=== PATIENT | female | born 1945 | race Caucasian/White ===

== ENCOUNTER 2018-01-09 03:59 | Inpatient (IN) | payer OTHER, MEDICARE ==
[~2018-01-09] VITALS: Ht 162.6 cm; Wt 98.4 kg
[~2018-01-09 03:59] MED LIST: ADVIL200 MG PO; ALKA SELTZER PL PO; CELEBREX100 M1 PO; DOXYCYCLINE HY100 M2 PO; FISH OIL CONC1000 MG PO; IBUPROFEN800 MG PO; LEVAQUIN500 MG PO; MULTIVITAMINS1 EAC9 PO; PANTOPRAZOLE SO40 M1 PO; ROBITUSSIN W/CO10 ML PO; SUDAFED PE PRES PO; VITAMIN D31000 IU PO
[2018-01-09] MEDS ORDERED: COLACE100 M1 PO ×2 (08:33→14:23)
[2018-01-09] MEDS ORDERED: BONINE25 MG PO (08:34)
[2018-01-09] MEDS ORDERED: SALONPAS GEL-P1 EACH TOP (08:35)
--- NOTE | 2018-01-09 09:59 | Operative Report ---
Operative/Inv Procedure Report Surgery Date: 01/09/18 Name of Procedure: Left total knee arthroplasty Pre-Operative Diagnosis: Left knee primary osteoarthritis Post-Operative Diagnosis: Same with final pathology pending Estimated Blood Loss: less than 50ml Surgeon/Kids Club Attendant: Braeden ANGEL,Donovan Carcamo Anesthesia: laryngeal mask airway Implants: Eolia triathlon total knee system-size 4 femur, size 4 tibia, 9 mm cruciate retaining polyethylene, 29 patella Drains: None Specimens: Femoral, tibial, patellar bone, remnants of the medial lateral meniscal tissues Microbiology: Urine Tourniquet: 47 minutes Complications: None Condition: Stable Operative Indication: Patient is a 72-year-old woman with a long history of gradually worsening left knee symptoms. She underwent right total knee arthroplasty elsewhere after failure of conservative measures. She developed similar symptoms in her left side and despite activity modification and medications, she had ongoing symptoms that worsened and increased with activity level. Her activities of daily living were compromised and she wished to proceed with total knee arthroplasty. Risks, benefits and expectations were discussed which included but were not limited to persistent knee pain, need for subsequent surgery, infection, DVT, injury to blood vessel or nerve and anesthesia risks. Operative/Procedure Note Note: Patient was brought to the operating room and transferred to the operating table. Once under appropriate anesthesia the left lower extremity was prepped and draped in standard fashion. Preoperative IV antibiotics were given prophylactically. The left lower extremity was elevated exsanguinated and tourniquet was inflated. The standard incision was made over the anterior aspect of the knee. Medial retinacular approach was used to enter the knee joint. Osteophytes were excised. Tricompartment osteoarthritis was confirmed. Remnants of the medial lateral meniscal tissues were excised. The knee was flexed and the patella was subluxed. Remnants of the ACL were excised. Retractors were placed medial laterally. I then proceeded using intramedullary drill for the intramedullary guide for the distal femoral cut. The cutting block was pinned in place for 6 valgus cut. The cut was made. The femur was then sized to a size 4. The size 4 cutting block was pinned in place. 4 cuts were made. Soft tissues were protected throughout the surgery. I then used the external tibial alignment guide and pinned the cutting block in a neutral position from medial to lateral and reproducing patient's posterior slope based on preoperative templating and intraoperative measurements. The cut was made. PCL was recessed to balance this structure. The tibia was then sized to a size 4. I trialed a size 4 tibia size 4 femur with a 9 mm polyethylene. The knee was taken out to full extension. Good stability full extension mid flexion and full flexion to gravity. I then turned my attention to the patella. The patella was measured and the appropriate thickness was removed and then replaced with a size 29 patella. The 3 lug holes were drilled in the patella. The rotation was marked and the 2 lugholes were drilled in the femur. All this rotation was then removed. I finished preparation of the tibia with the appropriate tibial punch. Again all instrument tissue was removed and copious irrigation followed. Cement was being mixed on the back table. Once it was ready was applied to the dry clean bony surfaces of the tibia. The size 4 tibia was impacted in place and excess cement was removed with curette. Cement was applied to dry clean bony surfaces of the distal femur. The femur was impacted in place and excess cement was removed with curette. Polyethylene was inserted and the knee was taken out to full extension. Cement was applied to dry clean bony surfaces of the patella. The size 29 patella was impacted in place and excess cement was removed with a knife. Once the cement hardened into the knee through range of motion. I was satisfied with a 9 mm cruciate retaining polyethylene. Full extension good mid flexion stability and full flexion to gravity. Copious irrigation followed after the tibial polyethylene component was removed. The tibial tray was checked to make sure there was no fragments of bone, cement or any soft tissue remnants within the tibial tray. The definitive size 9 mm cruciate retaining polyethylene was impacted in place and the locking mechanism was confirmed. Copious irrigation followed tourniquet was deflated at 47 minutes. Hemostasis was obtained. Closure started after irrigation. Irrigation followed every level of closure. The retinaculum and minimal extension to the quadricep tendon were closed with interrupted #1 Vicryl sutures. Subcu tissues closed in 2 layers with 2-0 Vicryl and skin was closed with a running 3-0 Vicryl suture with the knee in flexion. Appropriate dressings were applied and patient was awakened and taken to recovery room in good condition. No intraoperative complications. Blood loss was less than 50 cc Discharge Disposition: PACU
--- NOTE | 2018-01-09 14:22 | Admission Core Measures ---
Acute Coronary Syndrome (CM) ACS Core Measures Acute Coronary Syndrome Diagnosis No Congestive Heart Failure (NEW) CHF Core Measures Congestive Heart Failure Diagnosis No Cerebrovascular Accident CVA Core Measures CVA/TIA Diagnosis No Venous Thromboembolism VTE Core Ida (View Protocol) VTE Risk Factors Surgery No Mechanical VTE Prophylaxis d/t N/A MechProphylax Ordered No VTE Pharm Prophylaxis d/t NA PharmProphylax ordered Problem List As ranked by this Provider includes Assessment & Plan 1. Unilateral primary osteoarthritis, left knee HOME MEDS Home Med List Capsaicin/Menthol (Salonpas Gel-Patch Hot) 0.025 %-1.25 % ADH..PATCH 1 PATCH TOP DAILY PRN pain (Reported) Celecoxib (Celebrex) 100 MG CAPSULE 1 CAP PO BID PAIN (Reported) Docusate Sodium (Colace) 100 MG CAPSULE 1 CAP PO DAILY PRN gi (Reported) Meclizine HCl (Bonine) 25 MG TAB.CHEW 1 TAB PO DAILY PRN dizziness (Reported) Multiple Vitamin (Multivitamins) 1 EACH TABLET 1 TAB PO DAILY SUPPLEMENT ( Reported) Pantoprazole Sodium 40 MG TABLET.DR 1 TAB PO PRN GERD (Reported)
[2018-01-09] MEDS ORDERED: VICODIN 5-3001 EACH PO (14:25)
--- NOTE | 2018-01-09 14:30 | Surgical Discharge Summary ---
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 Egyptian Review of Systems: As per [facility] Hospital Course Course Attending Physician: Braeden ANGEL,Carlos Alberto Primary Care Physician: Katiana Levi Hospital Course: Patient tolerated procedure well. Postoperatively she was tolerating regular diet, voiding spontaneously, pain was well managed, and relating with physical therapy using rolling walker. Her dressing was changed on postop day #2 there are no signs of infection. Patient was cleared for discharge by physical therapy. Patient was given instructions to follow-up with Dr. Deras in 2 weeks and to call sooner with any questions or concerns Allergies: Coded Allergies: Penicillins (Severe, RASH, SWELLING 01/06/18) chlorhexidine (From HIBICLENS) (Intermediate, bad rash, "pins & needles" ) oxycodone (From PERCOCET) (itch 12/30/17) Significant Procedures: Left total knee arthroplasty Disposition Summary Disposition Principal Diagnosis: Left knee osteoarthritis Additional Diagnosis: Status post left total knee arthroplasty Discharge Instructions General Discharge Information Code Status: Full Code Patient's Diet: Regular Patient's Activity: Weightbearing as tolerated with rolling walker Follow-Up Instructions/Appts: Follow-up with Dr. Deras in 2 weeks. Call sooner with any questions or concerns Medications at Discharge Discharge Medications: Start taking the following new medications: Docusate Sodium (Colace) 100 MG CAPSULE 1 Capsule ORAL TWICE DAILY Qty = 14 No Refills Instructions: STOP TAKING IF YOU DEVELOP LOOSE STOOL/DIARRHEA Hydrocodone/Acetaminophen (Vicodin 5-300 MG Tablet) 5 MG-300 MG TABLET 1-2 Tablet ORAL EVERY 4-6 HOURS as needed for post-op Qty = 36 No Refills Copies To: Katiana Levi
--- NOTE | 2018-01-09 14:34 | Patient Discharge Instructions ---
Discharge Instructions General Discharge Information You were seen/treated for: Left knee pain/left knee osteoarthritis You had these procedures: Left total knee arthroplasty Watch for these problems: Fever over 100.4 Redness and swelling around incision Drainage from incision Unable to bear weight on left lower extremity Chest pain or shortness of breath No bath, but you may shower: Yes Other wound care: Daily dry dressing change. Keep incision clean and dry. Special Instructions: You will need your blood drawn regularly to check your INR to titrate your Coumadin dose. This medication is to vital to prevent blood clots from forming which could be life threatening. Please contact Dr. Deras' office to help set this up Diet Continue normal diet: Yes Activity Activity Self Limited: Yes Activity Limited to: Weight bear as tolerated (with rolling walker) Acute Coronary Syndrome Inclusion Criteria At DC or during hospital stay patient has or had the following: ACS DIAGNOSIS No Discharge Core Measures Meds if any: Prescribed or Continued at Discharge Meds if any: NOT Prescribed or Continued at Discharge Congestive Heart Failure Inclusion Criteria At DC or during hospital stay patient has or had the following: CHF DIAGNOSIS No Discharge Core Measures Meds if any: Prescribed or Continued at Discharge Meds if any: NOT Prescribed or Continued at Discharge Cerebrovascular accident Inclusion Criteria At DC or during hospital stay patient has or had the following: CVA/TIA Diagnosis No Discharge Core Measures Meds if any: Prescribed or Continued at Discharge Meds if any: NOT Prescribed or Continued at Discharge Venous thromboembolism Inclusion Criteria VTE Diagnosis No VTE Type NONE VTE Confirmed by (Test) NONE Discharge Core Measures - Per Current guidelines, there needs to be overlap - treatment for the first 5 days of Warfarin therapy. - If discharged on Warfarin prior to 5 days of - overlap therapy, the patient will need to be - assessed for post discharge needs including - *Post discharge parental anticoagulation - *Warfarin and/or parental anticoagulation education - *Follow up date to check INR post discharge At least 5 days overlap therapy as Inpatient No Meds if any: Prescribed or Continued at Discharge Note: Overlap Therapy is Warfarin and Anticoagulant Meds if any: NOT Prescribed or Continued at Discharge
--- NOTE | 2018-01-09 15:50 | PN- Orthopedic ---
Subjective Subjective: Postop check Patient sleeping in bed. Denies pain. Denies paresthesias has not been out of bed to ambulate yet. Has Evans in place. No nausea. She denies chest pain, shortness of breath, fever. Tolerated clears. Patient only complaint is that she is cold Objective Vital Signs and I&Os STABLE IN PACU Physical Exam: General- NAD Resperations- clear bialaterlly Cardiac-regular rate and rhythm Abdomen-soft nontender with positive bowel sounds Extremities-dressing is clean and dry, thigh is soft with no erythema. Calves are soft bilaterally and non-tenderness. Distal sensory and motor function is intact. 2+ posterior tib pulse bilaterally Current Medications: Current Medications Sig/Fabienne Start time Last Medication Dose Route Stop Time Status Admin Acetaminophen 0 .STK-MED ONE 01/09 1303 DC IV Acetaminophen 0 .STK-MED ONE 01/09 0856 DC PO Acetaminophen 650 MG ONCE 01/09 0000 DC PO 01/09 2359 Celecoxib 100 MG BID 01/09 2100 AC PO Celecoxib 400 MG ONCE 01/09 0000 DC PO 01/09 2359 Dexamethasone 0 .STK-MED ONE 01/09 0855 DC .ROUTE Dexamethasone 10 MG ONCE 01/09 0000 DC IV 01/09 2359 Dextrose/Lactated 1,000 ML Q13H 01/09 1545 AC 01/09 Ringer's IV 01/10 0444 1541 Docusate Sodium 100 MG BID 01/09 1030 UNVr PO Fentanyl Citrate 0 .STK-MED ONE 01/09 1104 DC .ROUTE Fentanyl Citrate 0 .STK-MED ONE 01/09 0728 DC .ROUTE Gabapentin 0 .STK-MED ONE 01/09 0856 DC PO Gabapentin 300 MG ONCE 01/09 0000 DC PO 01/09 2359 Hydrocodone Bitart/ 1 TAB Q6P PRN 01/09 1545 UNVr Acetaminophen PO Hydrocodone Bitart/ 2 TAB Q6P PRN 01/09 1545 UNVr Acetaminophen PO Hydromorphone HCl 0 .STK-MED ONE 01/09 1339 DC .ROUTE Hydromorphone HCl 0 .STK-MED ONE 01/09 1247 DC .ROUTE Hydromorphone HCl 0 .STK-MED ONE 01/09 1103 DC .ROUTE Midazolam HCl 0 .STK-MED ONE 01/09 1304 DC .ROUTE Midazolam HCl 0 .STK-MED ONE 01/09 0728 DC .ROUTE Morphine Sulfate 2 MG Q3P PRN 01/09 1545 UNVr IV Morphine Sulfate 0 .STK-MED ONE 01/09 1010 DC .ROUTE Omeprazole 40 MG DAILY AC 01/10 0700 UNVr PO Ondansetron HCl 4 MG Q6P PRN 01/09 1545 UNVr IV Oxycodone HCl 0 .STK-MED ONE 01/09 0855 DC PO Oxycodone HCl 10 MG ONCE 01/09 0000 DC PO 01/09 2359 Polyethylene Glycol 17 GM DAILY 01/09 1030 UNVr PO Scopolamine HBr 0 .STK-MED ONE 01/09 0855 DC TOP Scopolamine HBr 1 PAT ONCE 01/09 0000 DC TOP 01/09 2359 Senna/Docusate Sodium 2 TAB AT BEDTIME NEED.. 01/09 1545 UNVr PO Vancomycin HCl 1,500 MG ONCE ONE 01/09 2200 AC Sodium Chloride 250 ML IV 01/09 2329 Vancomycin HCl 1,500 MG ONCE 01/09 0000 DC Sodium Chloride 250 ML IV 01/09 2359 Warfarin Sodium 5 MG COUMADIN 1700 ONE 01/09 1700 UNVr PO 01/09 1701 Assessment/Plan Assessment/Plan 72-year-old female status post left total knee arthroplasty postop day 0. Stable Pain management PT- WBAT with rolling walker DVT PPX-Coumadin, will check INR in a.m. DC IVF in a.m. FU AM labs Regular diet Regular home medications Encourage IS DC planning Dressing change Post-op day2 Core Measures Venous Thromboembolism VTE Risk Factors Surgery No Mechanical VTE Prophylaxis d/t N/A MechProphylax Ordered No VTE Pharm Prophylaxis d/t NA PharmProphylax ordered
[2018-01-09 18:28] VITALS: BP 99/63
--- NOTE | 2018-01-09 18:49 | Cons- Medical ---
Solo Mahmood MD 01/09/18 2662: General Information and HPI Consulting Request Date of Consult: 01/09/18 Requested By: Braeden ANGEL,Carlos Alberto Reason for Consult: Double vision Slurred speech History of Present Illness: 72-year-old woman with a past medical history of depression, hepatitis C, Lyme disease, factor V Leiden deficiency, osteoarthritis and migraines admitted to the surgical service for an elective left total knee replacement. She was admitted today (01/09/18) where she underwent the procedure uneventfully. Postoperatively patient was transferred to the general medicine floor. During the day reports having double vision and was found to have mildly slurred speech. The slurred speech was progressively worsening throughout the day or which at 6:30 p.m. a medicine consult was placed. Stat CT head was ordered by the surgical service. Patient seen and examined at bedside with her children present in the room after returning from CT scan. Patient is seen eating dinnner and speaking with her children in no acute distress. She reports feeling weak and tired since waking up from the surgery. She reports that her children though she was slurring her words earlier which was confimed by her children and nursing staff. She had double vision in her left vision ramos before that is now improved. Presently she admits to only minor left knee pain with mild weakness and lethargy and otherwise feels well. She denies any headache, fever, chills, chest pain, palpitations, heartburn, shortness of breath, cough, nausea, vomiting, diarrhea. Allergies/Medications Allergies: Coded Allergies: Penicillins (Severe, RASH, SWELLING 01/06/18) chlorhexidine (From HIBICLENS) (Intermediate, bad rash, "pins & needles" ) oxycodone (From PERCOCET) (itch 12/30/17) Home Med List: Capsaicin/Menthol (Salonpas Gel-Patch Hot) 0.025 %-1.25 % ADH..PATCH 1 PATCH TOP DAILY PRN pain (Reported) Celecoxib (Celebrex) 100 MG CAPSULE 1 CAP PO BID PAIN (Reported) Docusate Sodium (Colace) 100 MG CAPSULE 1 CAP PO DAILY PRN gi (Reported) Docusate Sodium (Colace) 100 MG CAPSULE 1 CAP PO BID STOOL SOFTENER STOP TAKING IF YOU DEVELOP LOOSE STOOL/DIARRHEA Hydrocodone/Acetaminophen (Vicodin 5-300 MG Tablet) 5 MG-300 MG TABLET 1-2 TAB PO Q4-6 PRN post-op Meclizine HCl (Bonine) 25 MG TAB.CHEW 1 TAB PO DAILY PRN dizziness (Reported) Multiple Vitamin (Multivitamins) 1 EACH TABLET 1 TAB PO DAILY SUPPLEMENT ( Reported) Pantoprazole Sodium 40 MG TABLET. 1 TAB PO PRN GERD (Reported) Review of Systems Review of Systems Constitutional: Reports: see HPI. 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 Home Services at Home: None Smoking Status: Former Smoker Exam & Diagnostic Data Last 24 Hrs of Vital Signs/I&O Vital Signs Date Time Temp Pulse Resp B/P B/P Pulse O2 O2 Flow FiO2 Mean Ox Delivery Rate 01/09 1828 97.9 62 14 99/63 95 Nasal 2.0L Cannula 01/09 1502 98 Nasal 2.0L Cannula Intake & Output 01/09 1600 01/09 0800 01/09 0000 Intake Total Output Total Balance Patient 98.43 kg Weight Weight Bed scale Measurement Method Physical Exam General Appearance: well developed/nourished, no apparent distress, alert, awake , comfortable Head: atraumatic, normal appearance Eyes: Bilateral: normal appearance, PERRL, EOMI. 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 Presently patient admits to weakness and fatigue with minor surgical pain. Vital signs remain within normal limits. Physical examination demonstrates a normal cardiopulmonary exam with a complete neurologic examination demonstrating no focal deficits. No labs available for review. CT head without IV contrast is unremarkable. Clinically patient appears to have had neurologic symptoms post operatively that were self limited possibly due to anesthesia or narcotic pain medicaitons - however TIA/CVA must be considered. Problem list -Blurred vision with slurred speech, likely due to anesthesia / narcotic versus TIA/CVA -Status post left total knee replacement, POD #0 -History of factor V Leiden deficiency -Osteoarthritis -History of migraines -Depression -History of Lyme disease -History of hepatitis C Recommendations -Post operative care per orthopedics -Anticoagulation per orthopedics -Neurochecks for 24 hours -Obtain neurology consult tomorrow if patient has recurrent neurologic symptoms -Avoid using narcotics for pain management - use intravenous tylenol for now -Obtain baseline labs (CBC, BMP, TSHR) to assess for metabolic derrangments -DVT PPx Consult Acknowledgment - Thank you for your consult request. Shayne Gary MD 01/09/182009: Assessment/Plan Consult Acknowledgment - Thank you for your consult request. Attending MD Review Statement Attending Statement Attending MD Statement: examined this patient, discuss w/resident/PA/FLUXER, agreed w/resident/PA/FLUXER, reviewed EMR data (avail), discussed with nursing, discussed with case mgmt, amended to note Attending Assessment/Plan: Patient seen and examined. Lying in bed. Does not appear to be in any acute distress. She is lethargic but oriented 3. She denies any symptoms other than double vision. She reports that this started earlier on today and has persisted since. Double vision is worse when she looks to the left but resolves when she looks to the right. It also improves when she closes either eye. There is no pain associated with eye motion. She initially denies having similar symptoms in the past however at the end of my evaluation when I stated I will be obtaining a neurology consult in the morning she asked me which would be Dr. Sepulveda. She stated that she was referred to in the past when she had similar double vision a few months ago. She reported symptoms at that time only lasted a few hours and then spontaneously resolved. She had made an appointment which later cancelled. She is speaking in full sentences and have speech does not appear slurred. Nursing staff present at the bedside reports that this is an improvement in her mental status and speech compared to several minutes ago. Blood pressure was reported to be in the 90s earlier on we will repeat blood pressure shows a systolic in the 120s. Blood glucose level is also acceptable. On examination she has equal strength in all extremities with no muscular deficit. She has no facial asymmetry. Pupils are round, equal and reactive to light. She however appears to be a mild horizontal nystagmus. She denies any pain with eye movement. No proptosis. Ocular motility is intact. Field of vision is intact. Stat head CT was obtained that showed no acute intracranial pathologies. Problems: 1. Lethargy and slurred speech; resolved. Likely secondary to anesthesia. 2. Recurrent binocular diplopia 3. History of factor V Leyden deficiency 4. History of hepatitis C Plan: -If systems persist overnight, recommend neurology consultation. -Provide patient with an eye patch to help with symptoms. -Check serum electrolytes. Check TSH level -Check CBC to rule out any significant anemia that may be contributing to her lethargy. -Avoid oversedation. Limit opioid use. Attempt pain control with non-opioid analgesics if possible.
[2018-01-09 18:55] VITALS: BP 120/72
--- NOTE | 2018-01-09 20:03 | CT SCAN REPORT ---
EXAMINATION: CT HEAD WITHOUT CONTRAST CLINICAL INFORMATION: New diplopia. COMPARISON: CT brain 07/30/2016. TECHNIQUE: Contiguous axial imaging was performed from the skull base to vertex without intravenous administration of contrast. DLP: 614 mGy-cm FINDINGS: There is no evidence of acute intracranial hemorrhage or territorial infarction. No abnormal mass effect or midline shift is seen. Taylor to white matter differentiation is well preserved. No extra-axial fluid collections are identified. The ventricles are normal in size. There is no abnormal attenuation within the brain parenchyma. The osseous structures and soft tissues are normal. There is mild mucoperiosteal thickening right sphenoid sinus. Rest of the paranasal sinuses and mastoid cells are well-aerated. IMPRESSION: No acute intracranial process seen. Minimal inflammatory changes in right sphenoid sinus.
[2018-01-09 21:02] VITALS: BP 117/60
--- NOTE | 2018-01-09 21:28 | Event Note ---
Event Note Event Note: Pt assessed by surgical RACHEAL Shell earlier this evening for change in speech/ confusion/diplopia. Stat CT head ordered at that time, medical consult also requested. At this time, pt has no neurological deficits appreciated- some decreased rom lle though pod0 sp left tkr, gross sensation and dorsi/ plantarflexion intact and equal bl, no garbled speech/word finding difficulties, no facial droop, no tongue deviation, bl ue with gross sensory intact, strength intact/equal bl. Per pt, has intermittent diplopia over last 2-3 months and was recently seen by an "eye dr" with a negative workup. CT head negative. DW medical team, appreciate input. Jim Deras- aware. Will continue to closely monitor.
[2018-01-09 23:43] VITALS: BP 106/67
[2018-01-10 02:00] VITALS: BP 106/64
[2018-01-10 06:43] VITALS: BP 110/60
[2018-01-10 08:25] LABS: ABSOLUTE BASOPHIL COUNT 0 /CUMM (0.0-0.2); ABSOLUTE EOSINOPHIL COUNT 0 /CUMM (0.0-0.7); ABSOLUTE GRANULOCYTE CT 10.1 /CUMM (1.4-6.5); ABSOLUTE LYMPH COUNT 1.1 /CUMM (1.2-3.4); ABSOLUTE MONOCYTE COUNT 1.2 /CUMM (0.10-0.60); BASOPHIL % 0 % (0.0-2.0); EOSINOPHIL % 0 % (0-5); HEMATOCRIT 32.2 % (37-47); MEAN CORPUSCULAR HGB 31.1 PG (27.0-31.0); MEAN CORPUSCULAR VOLUME 91.4 FL (81.0-99.0); MEAN PLATELET VOLUME 7.4 FL (7.4-10.4); PLATELET COUNT 211 /CUMM (130-400); RBC DISTRIBUTION WIDTH 12.4 % (11.5-14.5); RED BLOOD CELL CT 3.53 /CUMM (4.20-5.40); WHITE BLOOD CELL COUNT 12.4 /CUMM (4.8-10.8)
[2018-01-10 08:33] LABS: PT 12.9 SEC (9.4-12.5)
--- NOTE | 2018-01-10 09:12 | PN- Medicine Consult ---
Timoteo ANGEL,Solo 01/10/18 0811: Assessment/PlanMedical Consult Assessment/Plan Assessment: 72 year old woman with multiple medical problems admitted to the surgical service for an elective left total knee replacement found to have blurred vision and worsening slurred speech post operatively for which a medicine consult was placed. Patient appears well today without any complaints or neurologic deficits. Vitals signs remain stable overnight. Physical examination remains unchanged. Labs today demonstrated mild leukocytosis thats likely reactive and mild anemia with a serum chemistry low sodium. Patient appears to have euvolemic hyponatremia for which serum/urine osmolality + urine lytes should be added on to morning labs to evaluate possible causes such as SIADH - This may be further evaluated as an outpatient. Problem list -Blurred vision with slurred speech, likely due to anesthesia - now resolved -Status post left total knee replacement, POD #1 -Euvolemic Hyponatremia -History of factor V Leiden deficiency -Osteoarthritis -History of migraines -Depression -History of Lyme disease -History of hepatitis C Recommendations -Post operative care per orthopedics -Anticoagulation per orthopedics -Add on Serum and urine osmolality and urine lytes, include these values in your discharge paperwork with instruction to follow up with her PCP as an outpatient for further evaluation of these findings -Recheck serum chemistry tomorrow -Minimize use of narcotics for pain relief if possible -DVT PPx Plan: As above Subjective Subjective: Patient seen and examined. She is seen sitting upright in her chair at bedside resting comfortably. She appears to be in no acute distress. She reports feeling well but some admit to some residual pain in the surgical site. She denies any further episodes of blurred vision or slurred speech. Review of Systems Additionally she denies any fever, chills, chest pain, shortness of breath, abdominal pain, numbness, tingling, or weakness. Objective Last 24 Hrs of Vital Signs/I&O Vital Signs Date Time Temp Pulse Resp B/P B/P Pulse O2 O2 Flow FiO2 Mean Ox Delivery Rate 01/10 0643 98.2 65 20 110/60 94 Room Air 01/10 0200 98.0 67 18 106/64 98 Room Air 01/09 2343 98.1 66 18 106/67 93 Room Air 01/09 2102 97.7 75 20 117/60 93 Room Air 01/09 1855 62 20 120/72 96 Nasal 2.0L Cannula 01/09 1828 97.9 62 14 99/63 95 Nasal 2.0L Cannula 01/09 1502 98 Nasal 2.0L Cannula Intake & Output 01/10 1600 01/10 0800 01/10 0000 Intake Total 220 420 Output Total 250 200 Balance -30 220 Intake, IV 20 300 Intake, Oral 200 120 Output, Urine 250 200 Physical Exam Other Physical Findings: General Appearance: well developed/nourished, no apparent distress, alert, awake , comfortable Head: atraumatic, normal appearance Eyes: Bilateral: normal appearance, PERRL, EOMI. Neck: normal inspection, supple, full range of motion Respiratory: normal breath sounds, chest non-tender, no respiratory distress, quiet respiration, lungs clear Cardiovascular: regular rate/rhythm, normal peripheral pulses Peripheral Pulses: 2+ radial (R), 2+ radial (L) Gastrointestinal: normal bowel sounds, soft, non-tender Extremities: normal inspection, normal capillary refill, normal range of motion, no edema Neurologic/Psych: no motor/sensory deficits, awake, alert, oriented x 3, normal mood/affect, operations executive II-XII nml as tested Cranial Nerves: normal hearing, normal speech, PERRL Current Medications: Current Medications Sig/Fabienne Start time Last Medication Dose Route Stop Time Status Admin Acetaminophen 0 .STK-MED ONE 01/10 0111 DC IV Acetaminophen 0 .STK-MED ONE 01/09 203 DC IV Acetaminophen 1,000 MG Q6H 01/10 2000 AC 01/10 N/A 1 UNIT IV 01/10 1414 0909 Acetaminophen 0 .STK-MED ONE 01/09 1303 DC IV Acetaminophen 650 MG ONCE 01/09 0000 DC PO 01/09 235 Celecoxib 100 MG BID 01/09 2100 AC 01/10 PO 0911 Celecoxib 400 MG ONCE 01/09 0000 DC PO 01/09 2359 Dexamethasone 10 MG ONCE 01/09 0000 DC IV 01/09 2359 Dextrose/Lactated 1,000 ML Q13H 01/09 1545 DC 01/09 Ringer's IV 01/10 0444 1541 Docusate Sodium 100 MG BID 01/09 1030 AC 01/10 PO 0911 Fentanyl Citrate 0 .STK-MED ONE 01/09 1104 DC .ROUTE Gabapentin 300 MG ONCE 01/09 0000 DC PO 01/09 2359 Hydrocodone Bitart/ 1 TAB Q6P PRN 01/09 1545 DC Acetaminophen PO Hydrocodone Bitart/ 2 TAB Q6P PRN 01/09 1545 DC Acetaminophen PO Hydromorphone HCl 0 .STK-MED ONE 01/09 1339 DC .ROUTE Hydromorphone HCl 0 .STK-MED ONE 01/09 1247 DC .ROUTE Hydromorphone HCl 0 .STK-MED ONE 01/09 1103 DC .ROUTE Midazolam HCl 0 .STK-MED ONE 01/09 1304 DC .ROUTE Morphine Sulfate 2 MG Q3P PRN 01/09 1545 AC IV Morphine Sulfate 0 .STK-MED ONE 01/09 1010 DC .ROUTE Omeprazole 40 MG DAILY AC 01/10 0700 AC 01/10 PO 0521 Ondansetron HCl 4 MG Q6P PRN 01/09 1545 AC IV Oxycodone HCl 10 MG ONCE 01/09 0000 DC PO 01/09 2359 Polyethylene Glycol 17 GM DAILY 01/09 1030 AC 01/10 PO 0911 Scopolamine HBr 1 PAT ONCE 01/09 0000 DC TOP 01/09 2359 Senna/Docusate Sodium 2 TAB AT BEDTIME NEED.. 01/09 1545 AC PO Vancomycin HCl 1,500 MG ONCE ONE 01/09 2200 DC 01/09 Sodium Chloride 250 ML IV 01/09 2329 2101 Vancomycin HCl 1,500 MG ONCE 01/09 0000 DC Sodium Chloride 250 ML IV 01/09 2359 Warfarin Sodium 5 MG COUMADIN 1700 ONE 01/09 1700 DC 01/09 PO 01/09 1701 2049 Results Last 24 Hrs Lab/Javier Results: Laboratory Tests 01/10/18 0752: Anion Gap 8, Estimated GFR > 60, BUN/Creatinine Ratio 28.0 H, PT 12.9 H, INR 1.18, CBC w Diff NO MAN DIFF REQ, RBC 3.53 L, MCV 91.4, MCH 31.1 H, MCHC 34.0, RDW 12.4, MPV 7.4, Gran % 82.0 H, Lymphocytes % 8.7 L, Monocytes % 9.3, Eosinophils % 0, Basophils % 0, Absolute Granulocytes 10.1 H, Absolute Lymphocytes 1.1 L, Absolute Monocytes 1.2 H, Absolute Eosinophils 0, Absolute Basophils 0 Microbiology 01/09 1055 URINE ROUT: Urine Culture - RES Leeann Bowie MD 01/10/18 1133: Attending MD Review Statement Attending Sign Off Attending Cosign Statement: I have: examined this patient, reviewed al EMR data, personally reviewd images, discussd w/resident/PA/SILVICULTURE PROFESSOR, discussed mgmt plan w/chinedu, discussed mgmt plan w/pt, agreed w/resident/PA/SILVICULTURE PROFESSOR, amended to note. Other Findings: Patient seen and examined, currently she is back to her baseline. She denies further diplopia. She is not having any more slurring of her speech. Vital Signs Date Time Temp Pulse Resp B/P B/P Pulse O2 O2 Flow FiO2 Mean Ox Delivery Rate 01/10 0643 98.2 65 20 110/60 94 Room Air 01/10 0200 98.0 67 18 106/64 98 Room Air 01/09 2343 98.1 66 18 106/67 93 Room Air 01/09 2102 97.7 75 20 117/60 93 Room Air 01/09 1855 62 20 120/72 96 Nasal 2.0L Cannula 01/09 1828 97.9 62 14 99/63 95 Nasal 2.0L Cannula 01/09 1502 98 Nasal 2.0L Cannula on exam; aox3, nad. cv; s1, s2, rrr resp; clear abd; soft, nt, bs+ ext; no edema Laboratory Tests 01/10 0752 Chemistry Sodium (137 - 145 mmol/L) 130 L Potassium (3.5 - 5.1 mmol/L) 4.3 Chloride (98 - 107 mmol/L) 97 L Carbon Dioxide (22 - 30 mmol/L) 26 Anion Gap (5 - 16) 8 BUN (7 - 17 mg/dL) 14 Creatinine (0.5 - 1.0 mg/dL) 0.5 Estimated GFR (>60 ml/min) > 60 BUN/Creatinine Ratio (7 - 25 %) 28.0 H Coagulation PT (9.4 - 12.5 SEC) 12.9 H INR (0.90 - 1.19) 1.18 Hematology CBC w Diff NO MAN DIFF REQ WBC (4.8 - 10.8 /CUMM) 12.4 H RBC (4.20 - 5.40 /CUMM) 3.53 L Hgb (12.0 - 16.0 G/DL) 11.0 L Hct (37 - 47 %) 32.2 L MCV (81.0 - 99.0 FL) 91.4 MCH (27.0 - 31.0 PG) 31.1 H MCHC (33.0 - 37.0 G/DL) 34.0 RDW (11.5 - 14.5 %) 12.4 Plt Count (130 - 400 /CUMM) 211 MPV (7.4 - 10.4 FL) 7.4 Gran % (42.2 - 75.2 %) 82.0 H Lymphocytes % (20.5 - 51.1 %) 8.7 L Monocytes % (1.7 - 9.3 %) 9.3 Eosinophils % (0 - 5 %) 0 Basophils % (0.0 - 2.0 %) 0 Absolute Granulocytes (1.4 - 6.5 /CUMM) 10.1 H Absolute Lymphocytes (1.2 - 3.4 /CUMM) 1.1 L Absolute Monocytes (0.10 - 0.60 /CUMM) 1.2 H Absolute Eosinophils (0.0 - 0.7 /CUMM) 0 Absolute Basophils (0.0 - 0.2 /CUMM) 0 Assessment and recommendations: 72 y/o F with pmh sig for depression, hepatitis C, Lyme disease, factor V Leiden deficiency, osteoarthritis who is status post total left knee replacement postop day #1 today. Medicine was consulted secondary to patient found to have slurring of speech and double vision yesterday. CT head was ordered and it came out negative. This is likely secondary to the effect of anesthesia and medications. Patient now back to baseline. CT head was negative. Noted a slight drop in patient's sodium. Please watch fluid intake. Noted that patient has received dextrose lactated Ringer's fluids. Monitor sodium. Can order urine studies including urine lites and urine osmolality as well as serum osmolality to look for the cause of hyponatremia. We might have to put her on some fluid restriction pending these studies. Continue the rest of the management. Avoid extra doses of narcotics. DVT prophylaxis Coumadin per orthopedic. prophylaxis Coumadin per orthopedic.
--- NOTE | 2018-01-10 10:10 | PN- Orthopedic ---
See Addendum Subjective Subjective: Post operative events noted. No current complaints of neurologic deficits, double vision has resolved. No headache or blurred vision. No dizziness. No nausea or vomitting. Tolerated diet, no difficulty speaking or swallowing. Effects of femoral nerve block still noted, quadriceps on left side weak. Pain tolerable. Finds fuentes catheter to be irritating, requesting its removal. Objective Vital Signs and I&Os Vital Signs Date Time Temp Pulse Resp B/P B/P Pulse O2 O2 Flow FiO2 Mean Ox Delivery Rate 01/10 0643 98.2 65 20 110/60 94 Room Air 01/10 0200 98.0 67 18 106/64 98 Room Air 01/09 2343 98.1 66 18 106/67 93 Room Air 01/09 2102 97.7 75 20 117/60 93 Room Air 01/09 1855 62 20 120/72 96 Nasal 2.0L Cannula 01/09 1828 97.9 62 14 99/63 95 Nasal 2.0L Cannula 01/09 1502 98 Nasal 2.0L Cannula Intake & Output 01/10 1600 01/10 0801/10 0000 01/09 1600 01/09 0800 01/09 0000 Intake Total 220 420 Output Total 250 200 Balance -30 220 Intake, IV 20 300 Intake, Oral 200 120 Output, Urine 250 200 Patient 217 lb Weight Weight Bed scale Measurement Method Physical Exam: General: Alert and oriented x3, no acute distress HEENT: cranial nerve assessment intact, no neurological deficit appreciated Cardiac: RRR, s1s2 Pulm: C TA bilaterally Abd: Soft, non-tender, non -distended Extremties: Moves all extremities, distan sensation grossly intact. Motor limited in left side due to impaired quad function related to femoral nerve block, requires knee immoblizer when standing/ambulating. Bilateral calves soft and non-tender Surgical site: Left knee, dressing dry and intact. Assessment/Plan Assessment/Plan This is a 72 year old female, POD 1, s/p L TKA. Post op course complicated by diplopia, altered mental status for which stroke alert was called. CT findings negative, current neurological exam without deficit with the exception of impaired quadricep function post femoral nerve block. -Limit narcotic use, continue to assess neurologic function -OOB, KNEE IMMOBILIZER AT ALL TIMES -until otherwise indicaed by PT, WBAT -DC fuentes -DC iv fluids -Continue diet as tolerated -Coumadin for dvt ppx, titrate dose daily per INR, target INR 2.0-2.5 Will discuss plan of care with Dr. Deras Core Measures Venous Thromboembolism VTE Risk Factors Surgery No Mechanical VTE Prophylaxis d/t N/A MechProphylax Ordered No VTE Pharm Prophylaxis d/t NA PharmProphylax ordered
[2018-01-10 12:00] VITALS: BP 112/68
[2018-01-10 14:44] VITALS: BP 115/60
[2018-01-10 21:07] VITALS: BP 110/66
[2018-01-11 06:20] VITALS: BP 147/81
[2018-01-11 07:47] LABS: ABSOLUTE BASOPHIL COUNT 0 /CUMM (0.0-0.2); ABSOLUTE EOSINOPHIL COUNT 0.2 /CUMM (0.0-0.7); ABSOLUTE GRANULOCYTE CT 7.5 /CUMM (1.4-6.5); ABSOLUTE LYMPH COUNT 1.4 /CUMM (1.2-3.4); ABSOLUTE MONOCYTE COUNT 1.2 /CUMM (0.10-0.60); BASOPHIL % 0.3 % (0.0-2.0); EOSINOPHIL % 2.2 % (0-5); GRANULOCYTE % 71.9 % (42.2-75.2); HEMATOCRIT 31.6 % (37-47); MEAN CORPUSCULAR HGB 31.4 PG (27.0-31.0); MEAN CORPUSCULAR HGB CONC 34.2 G/DL (33.0-37.0); MEAN CORPUSCULAR VOLUME 91.8 FL (81.0-99.0); MEAN PLATELET VOLUME 7.8 FL (7.4-10.4); PLATELET COUNT 187 /CUMM (130-400); RBC DISTRIBUTION WIDTH 12.8 % (11.5-14.5); RED BLOOD CELL CT 3.44 /CUMM (4.20-5.40); WHITE BLOOD CELL COUNT 10.4 /CUMM (4.8-10.8)
[2018-01-11 08:17] LABS: PT 13.7 SEC (9.4-12.5)
--- NOTE | 2018-01-11 08:40 | PN- Medicine Consult ---
Jose A ANGEL,Tad 01/11/18 0840: Assessment/PlanMedical Consult Assessment/Plan Assessment: 72 year old woman with multiple medical problems admitted to the surgical service for an elective left total knee replacement found to have blurred vision and worsening slurred speech post operatively for which a medicine consult was placed. Patient appears well today without any complaints or neurologic deficits. Vitals signs remain stable overnight. Physical examination remains unchanged. leukocytosis that was likely reactive has resolved. There is mild anemia but stable. serum chemistry is remarkable for low sodium. Patient appears to have euvolemic hyponatremia for which serum/urine osmolality + urine lytes should be added on to morning labs to evaluate possible causes such as SIADH - pain is always a possible cause of SIADH. Her sodium levels indicate mild hyponatremia and since she is asymptomatic, her hyponatremia can be f/u an outpatient basis. Problem list -Blurred vision with slurred speech, likely due to anesthesia - now resolved -Status post left total knee replacement, POD #1 -Euvolemic Hyponatremia -History of factor V Leiden deficiency -Osteoarthritis -History of migraines -Depression -History of Lyme disease -History of hepatitis C Plan: Recommendations -Post operative care per orthopedics -Anticoagulation per orthopedics -please obtain urine lytes (only urine osmolarity has been obtained) -Minimize use of narcotics for pain relief if possible -DVT PPx Plan: As above Problem List: 1. Unilateral primary osteoarthritis, left knee Subjective Subjective: seen and examined while seated comfortably on recliner. She still reports musculoskeletal pain but offers no complaints of fever/chills/ sob/cp/palpitation/focal neurological deficits/abdominal pain or dysuria. Review of Systems Constitutional: Reports: see HPI. Objective Last 24 Hrs of Vital Signs/I&O Vital Signs Date Time Temp Pulse Resp B/P B/P Pulse O2 O2 Flow FiO2 Mean Ox Delivery Rate 01/11 1409 99.4 88 18 133/68 95 Room Air 01/11 0620 97.6 91 17 147/81 95 01/10 2107 98.4 86 16 110/66 93 Room Air Intake & Output 01/11 1600 01/11 0800 01/11 0000 Intake Total 720 240 240 Output Total 600 300 350 Balance 120 -60 -110 Intake, Oral 720 240 240 Output, Urine 600 300 350 Physical Exam General Appearance: well developed/nourished, no apparent distress, alert, awake , comfortable Head: atraumatic, normal appearance Cardiovascular: regular rate/rhythm Respiratory: normal breath sounds, chest non-tender, no respiratory distress, lungs clear Abdomen: normal bowel sounds, soft, non-tender Current Medications: Current Medications Sig/Fabienne Start time Last Medication Dose Route Stop Time Status Admin Acetaminophen 975 MG Q8P PRN 01/10 1800 AC 01/11 PO 1230 Celecoxib 100 MG BID 01/09 2100 AC 01/11 PO 0935 Docusate Sodium 100 MG BID 01/09 1030 AC 01/11 PO 0935 Morphine Sulfate 2 MG Q3P PRN 01/09 1545 AC IV Omeprazole 40 MG DAILY AC 01/10 0700 AC 01/11 PO 0517 Ondansetron HCl 4 MG Q6P PRN 01/09 1545 AC IV Oxycodone HCl 5 MG Q4P PRN 01/10 1800 AC 01/11 PO 1422 Patient Medication 1 ED ONE ONE 01/11 1115 DC 01/11 Teaching ED 01/11 1116 1231 Patient Medication [address] [facility] ONE 01/10 1930 OR 01/10 Teaching ED 01/10 1931 2134 Polyethylene Glycol 17 GM DAILY 01/09 1030 01/11 PO 0935 Senna/Docusate Sodium 2 TAB AT BEDTIME NEED.. 01/09 1545 AC PO Warfarin Sodium 7.5 MG COUMADIN 1700 ONE 01/11 1700 AC PO 01/11 1701 Warfarin Sodium 5 MG COUMADIN 1700 ONE 01/10 1700 OR 01/10 PO 01/10 1701 1751 Results Last 24 Hrs Lab/Javier Results: Laboratory Tests 01/11/18 0603: Anion Gap 5, Estimated GFR > 60, BUN/Creatinine Ratio 25.0, PT 13.7 H, INR 1.25 H, CBC w Diff NO MAN DIFF REQ, RBC 3.44 L, MCV 91.8, MCH 31.4 H, MCHC 34.2, RDW 12.8, MPV 7.8, Gran % 71.9, Lymphocytes % 13.7 L, Monocytes % 11.9 H, Eosinophils % 2.2, Basophils % 0.3, Absolute Granulocytes 7.5 H, Absolute Lymphocytes 1.4, Absolute Monocytes 1.2 H, Absolute Eosinophils 0.2, Absolute Basophils 0 Shiloh Thomas 01/11/18 1004: Attending MD Review Statement Attending Sign Off Attending Cosign Statement: I have: examined this patient, reviewed [employer] EMR data, personally reviewd images. Other Findings: 72 y/o F with pmh sig for depression, hepatitis C, Lyme disease, factor V Leiden deficiency, osteoarthritis who is status post total left knee replacement. Medicine was consulted secondary to patient found to have slurring of speech and double vision. This is likely secondary to the effect of anesthesia and medications. Patient now back to baseline. CT head was negative. Hyponatremia improving. Continue the rest of the management. DVT prophylaxis Coumadin INR 1.25 per orthopedic. Rest of care as per orthopedics. follow up with PCP after discharge. Monitor INR and adjust coumadin.
--- NOTE | 2018-01-11 08:44 | PN- Student ---
See Addendum Shira Coulter 01/11/18 0820: Subjective Subjective: Pt resting comfortably in bed s/p total left knee replacement POD 2. Denies pain at rest but 8/10 pain in the back of the knee with movement. Has been able to ambulate down the hallway with walker this morning w/ PT. Continues to flex ankle and elevate the knee. Pt reports paresthesias on left inner thigh likely 2 /2 to nerve block. Pt has tolerated regular diet well, passing flatus, but has not had BM yet. Dressings changed at bedside in the AM. Pt denies chest pain, SOB, fever, dysuria, diploplia, dizziness, or constipation. Objective Objective: 24 TOTALS 01/11 0000 01/10 0000 Intake Total 1460 420 Output Total 600 200 Balance 860 220 Intake, IV 20 300 Intake, Oral 1440 120 Output, Urine 600 200 Patient 217 lb Weight Weight Bed scale Measurement Method Laboratory Tests 01/11/18 0603: Sodium Pending, Potassium Pending, Chloride Pending, Carbon Dioxide Pending, Anion Gap Pending, BUN Pending, Creatinine Pending, BUN/Creatinine Ratio Pending , PT 13.7 H, INR 1.25 H, CBC w Diff NO MAN DIFF REQ, RBC 3.44 L, MCV 91.8, MCH 31.4 H, MCHC 34.2, RDW 12.8, MPV 7.8, Gran % 71.9, Lymphocytes % 13.7 L, Monocytes % 11.9 H, Eosinophils % 2.2, Basophils % 0.3, Absolute Granulocytes 7.5 H, Absolute Lymphocytes 1.4, Absolute Monocytes 1.2 H, Absolute Eosinophils 0.2, Absolute Basophils 0 01/10/18 0752: Anion Gap 8, Estimated GFR > 60, BUN/Creatinine Ratio 28.0 H, Serum Osmolality 273 L, PT 12.9 H, INR 1.18, CBC w Diff NO MAN DIFF REQ, RBC 3.53 L, MCV 91.4, MCH 31.1 H, MCHC 34.0, RDW 12.4, MPV 7.4, Gran % 82.0 H, Lymphocytes % 8.7 L, Monocytes % 9.3, Eosinophils % 0, Basophils % 0, Absolute Granulocytes 10.1 H, Absolute Lymphocytes 1.1 L, Absolute Monocytes 1.2 H, Absolute Eosinophils 0, Absolute Basophils 0 Physical exam: General- elderly, overweight female resting in bed, NAD, AOx4 Cardiac- RRR, s1s2 crisp, no m/r/g Resp: quiet breath sounds, increased work of breath, vesicular b/l, no w/r/r Abdomen- soft, NT, mildly distended, NABS Extremities- LLE motor 4/5 elicits pain on flex/extension, RLE motor 5/5, sensation grossly intact on right, decreased on left inner thigh, dressing is clean and dry w/o erythema or exudate. Calves are soft b/l w/o tenderness. 1+ posterior tib pulse b/l, dorsalis pedis not appreciated Assessment/Plan Assessment: 72 yo female w/ PMHx of Factor V Leiden, Lyme, migraines, hepC, OA and depression POD 2 s/p L TKA post-op course cx by diploplia and AMS resolved yesterday and euvolemic hyponatremia currently pending w/u Plan: F/u AM BMP and IM to plan for euvolemic hyponatremia mgmt Pain management w/ 975mg Tylenol and 5mg oxycodone q4 prn, transition to PO as tolerated OOB and WBAT w/ rolling walker Encourage IS Continue regular diet as tolerated Coumadin for dvt ppx, titrate dose daily per INR (target 2.0-2.5) D/c planning, home PT versus STR Will discuss plan w/ Surg PA and Dr. Deras
[2018-01-11 14:09] VITALS: BP 133/68
--- NOTE | 2018-01-11 15:59 | RADIOLOGY REPORT ---
EXAMINATION: XR KNEE, LEFT CLINICAL INFORMATION: Status post left total knee arthroplasty. COMPARISON: None TECHNIQUE: AP and crosstable lateral views of the left knee. FINDINGS: The left total knee arthroplasty appears well seated in near-anatomic alignment. There is a small joint effusion. There is some scattered air in the soft tissues. IMPRESSION: Intact-appearing left total knee arthroplasty. Small joint effusion. Expected postoperative changes.
[2018-01-11 21:06] VITALS: BP 140/68
--- NOTE | 2018-01-12 06:57 | PN- Student ---
Shira Coulter 01/12/18 0641: Subjective Subjective: Pt resting comfortably in bed, alert and conversant. Pt reports she slept fine overnight, pain is well managed, and she has ambulating w. assistance and tolerated her regular diet. Pt has been spontaneously voiding and passing flatus , but no BM. Pt denies constipation, urge, nausea, vomitting, fever, SOB, or chest pain. Pt reports swelling on her left knee, pain with movement. Ice packs and elevation has helped but refusing compression. Objective Objective: pending am labs Physical exam: General- elderly, overweight female resting in bed, NAD, AOx4 Cardiac- RRR, s1s2 crisp, no m/r/g Resp: quiet breath sounds, increased work of breath, vesicular b/l posterior ramos, no w/r/r Abdomen- soft, NTND, NABS Extremities- LLE motor 4/5 elicits pain on flex/extension, RLE motor 5/5, sensation grossly intact on right, improved on left inner thigh, dressing has scant dry, blood w/o erythema or exudate. Calves are soft and tender to palpation b/l. 1+ posterior tib pulse b/l, dorsalis pedis not appreciated, no pedal edema b/l Assessment/Plan Assessment: 72 yo female w/ PMHx of Factor V Leiden, Lyme, migraines, hepC, OA and depression POD 3 s/p L TKA post-op course cx by diploplia and AMS resolved and euvolemic hyponatremia currently stable Plan: F/u AM BMP and coags and PE for calf tenderness. Tenderness on right present pre -op, tenderness on left likely 2/2 to post-op edema o/p mgmt of euvolemic hyponatremia Pain management w/ 975mg Tylenol and 5mg oxycodone q4 prn, transition to PO as tolerated OOB and WBAT w/ rolling walker Encourage IS Continue regular diet as tolerated Coumadin for dvt ppx, titrate dose daily per INR (target 2.0-2.5) D/c planning, home PT versus STR Will discuss plan w/ Surg PA and Lizet Mitchell 01/12/18 3469: Subjective Subjective: NO complaints, paresthesias have resolved on thigh Assessment/Plan Assessment: pt no longer wearing knee immobilizer, dr jarrett instructedher not to wer it anymore since block as worn off Plan: FU INR this morning, pt to be continue Coumadin on DC for DVT ppx, will continue to titrate dose for INR goal 2-2.5. DC planning- home today with [facility] FU with Dr Deras in 2 weeks
[2018-01-12 06:59] VITALS: BP 141/76
[2018-01-12 08:15] LABS: PT 16.7 SEC (9.4-12.5)
[2018-01-12] MEDS ORDERED: COLACE100 M1 PO (09:33)
[2018-01-12] MEDS ORDERED: COUMADIN5 M2 PO (09:33)
[2018-01-12] MEDS ORDERED: COUMADIN2 M1 PO (09:33)
[2018-01-12] MEDS ORDERED: VICODIN 5-3001 EACH PO (09:33)
--- NOTE | 2018-01-12 12:11 | PN- Medicine Consult ---
Jose A ANGEL,Tad 01/12/18 1210: Assessment/PlanMedical Consult Assessment/Plan Assessment: 72 year old woman with multiple medical problems admitted to the surgical service for an elective left total knee replacement found to have blurred vision and worsening slurred speech post operatively for which a medicine consult was placed. Patient appears well today without any complaints or neurologic deficits. Vitals signs remain stable overnight. Physical examination remains unchanged. leukocytosis that was likely reactive has resolved. There is mild anemia but stable. serum chemistry is remarkable for low sodium. Patient appears to have euvolemic hyponatremia for which serum/urine osmolality + urine lytes should be added on to morning labs to evaluate possible causes such as SIADH - pain is always a possible cause of SIADH. Her sodium levels indicate mild hyponatremia and since she is asymptomatic, her hyponatremia can be f/u an outpatient basis. Problem list -Blurred vision with slurred speech, likely due to anesthesia - now resolved -Status post left total knee replacement -Euvolemic mild Hyponatremia -History of factor V Leiden deficiency -Osteoarthritis -History of migraines -Depression -History of Lyme disease -History of hepatitis C Plan: Recommendations -Post operative care per orthopedics -Anticoagulation per orthopedics, however will suggest todays dose to be 7.5mg warfarin to achieve an INR goal of 2-3. -Sodium levels improved. Pt is asymptomatic. Can be followed on an outpatient basis. -Minimize use of narcotics for pain relief if possible -Pt is stable and at a medical team point of view, her mild hyponatremia can be followed up on an outpatient basis by PCP. -DVT PPx Plan: As above Plan: As stated above Subjective Subjective: Seen and examined today. She reports mild increase of urination, but no dysuria or change in urine smell/ color. She does state that for the last 24 hrs, she has been drinking increased amount of fluids "to flush things out". She remains afebrile, with no complaints of fever/chills,sob,cp/palpitations. Objective Last 24 Hrs of Vital Signs/I&O Vital Signs Date Time Temp Pulse Resp B/P B/P Pulse O2 O2 Flow FiO2 Mean Ox Delivery Rate 01/12 0659 98.2 79 20 141/76 95 Room Air 01/11 2106 98.9 85 18 140/68 96 Room Air 01/11 1409 99.4 88 18 133/68 95 Room Air Intake & Output 01/12 1600 01/12 0800 01/12 0000 Intake Total 240 240 Output Total 250 Balance -10 240 Intake, Oral 240 240 Output, Urine 250 Physical Exam General Appearance: well developed/nourished, no apparent distress, alert, awake Other Physical Findings: Head: atraumatic, normal appearance Cardiovascular: regular rate/rhythm Respiratory: normal breath sounds, chest non-tender, no respiratory distress, lungs clear Abdomen: normal bowel sounds, soft, non-tender Current Medications: Current Medications Sig/Fabienne Start time Last Medication Dose Route Stop Time Status Admin Acetaminophen 975 MG Q8P PRN 01/10 1800 AC 01/11 PO 1230 Celecoxib 100 MG BID 01/09 2100 AC 01/12 PO 926 Docusate Sodium 200 MG BID 01/12 09 AC 01/12 PO 09 Docusate Sodium 100 MG BID 01/09 1030 DC 01/11 PO 1918 Morphine Sulfate 2 MG Q3P PRN 01/09 1545 AC IV Omeprazole 40 MG DAILY AC 01/10 0700 AC 01/12 PO 0455 Ondansetron HCl 4 MG Q6P PRN 01/09 1545 AC IV Oxycodone HCl 5 MG Q4P PRN 01/10 1800 AC 01/12 PO 926 Polyethylene Glycol 17 GM DAILY 01/09 1030 AC 01/12 PO 926 Senna/Docusate Sodium 2 TAB AT BEDTIME NEED.. 01/09 1545 AC PO Warfarin Sodium 5 MG COUMADIN 1700 ONE 01/12 1700 AC PO 01/12 1701 Warfarin Sodium 7.5 MG COUMADIN 1700 ONE 01/11 1700 DC 01/11 PO 01/11 1701 1723 Results Last 24 Hrs Lab/Javier Results: Laboratory Tests 01/12/18 1211: Anion Gap 6, Estimated GFR > 60, BUN/Creatinine Ratio 16.0 01/12/18 0743: PT 16.7 H, INR 1.53 H Jamir ANGEL,[facility] 01/12/18 1439: Attending MD Review Statement Attending Sign Off Attending Cosign Statement: I have: examined this patient, reviewed [facility] EMR data, personally reviewd images, discussd w/resident/PA/IRON ASSORTER, discussed mgmt plan w/chinedu, discussed mgmt plan w/pt, agreed w/resident/PA/IRON ASSORTER, amended to note. Other Findings: Patient seen and examined, doing well. She is otherwise ready for discharge today. Medicine is following for hyponatremia which is improving. Patient was also dizzy and had some diplopia after the surgery which has been resolved since. Sodium is stabilized. Medically she stable for discharge. Further postop management per orthopedic. Patient should follow-up with her primary care doctor as an outpatient.
[2018-01-12 14:15] VITALS: BP 122/58
[2018-01-12] MEDS ORDERED: OXYCODONE HCL5 M1 PO (17:26)
== END 2018-01-12 18:00 | disposition home health service (06) | DRG 470 ==
LOC: SDA 03:59 → ENRESERV 12:57 → ENTRNSPT 14:39 → EDTRNSPT 14:55 → EDTRNSPTSTS 14:55 → 2NB 15:02 → CMPTRNSPT 15:15 → ENPENDDIS 01-12 09:38 → ENTRNSPT 01-12 17:39 → EDTRNSPTSTS 01-12 17:46 → EDTRNSPT 01-12 17:46 → 2NB 01-12 18:00 → CMPTRNSPT 01-12 18:31
PROVIDERS: Physician Assistant; Physician Assistant Surgical
PROC: 3E0T3BZ Introduction of Anesthetic Agent into Peripheral Nerves and Plexi, Percutaneous Approach (ICD-10-PCS; principal; 2018-01-09)
PROC: 0SRD0J9 Replacement of Left Knee Joint with Synthetic Substitute, Cemented, Open Approach (ICD-10-PCS; principal; 2018-01-09)
DX: M17.12 Unilateral primary osteoarthritis, left knee (principal); D68.51 Activated protein C resistance; E87.1 Hypo-osmolality and hyponatremia; F32.9 Major depressive disorder, single episode, unspecified; B18.2 Chronic viral hepatitis C; Z88.5 Allergy status to narcotic agent; Z88.0 Allergy status to penicillin; K21.9 Gastro-esophageal reflux disease without esophagitis; Z87.891 Personal history of nicotine dependence; T88.59XA Other complications of anesthesia, initial encounter; Y83.9 Surgical procedure, unspecified as the cause of abnormal reaction of the patient, or of later complication, without mention of misadventure at the time of the procedure; Y92.239 Unspecified place in hospital as the place of occurrence of the external cause; H53.2 Diplopia
CPT/HCPCS: 2NBSP; 84133; 84300; 36415; 36592; 73560-LT; 82436; 82570; 87086; 97110-GO; 97116-GO; 97161-GP; 97530-GO; C1713; C9290; J0131; J1100; J2405; J3370; J3490; J7040